=== PATIENT | male | born 1995 | race Caucasian/White ===

== ENCOUNTER 2018-11-10 11:28 | Emergency (ER) | payer MEDICAID ==
[~2018-11-10] VITALS: Ht 160 cm; Wt 74.7 kg
[2018-11-10 11:33] VITALS: RESP 18; Ht 160 cm; Wt 74.7 kg
[2018-11-10] MEDS ORDERED: TETRACAINE 0.5% 4 ML OPH LEFT EYE SCH (13:30)
[2018-11-10] MEDS ORDERED: SULF15DR19 LEFT EYE (13:59)
[2018-11-10 14:17] VITALS: BP 113/69; PULSE 62
--- NOTE | 2018-11-10 16:35 | ERD ---
ER Documentation Chief Complaint Chief Complaint left eye redness, pain & swelling x2 days HPI 23-year-old male patient with no significant past medical history presents to ED complaining of left eye redness, pain and swelling that started about 2 days ago. That he has some slight left eye blurred vision. Denies having any foreign bodies in his left eye. Denies any fever, chills, headache, nausea, vomiting, dizziness. ROS All systems reviewed and are negative except as per history of present illness. Medications Home Meds Active Scripts Sulfacetamide Sodium* (Bleph-10*) 10%-15 Ml Opht Drops, 1 DROP LEFT EYE Q2H for 7 Days, #1 EA Prov:STEPHANIE KONG Lance BAILEY 11/10/18 PMhx/Soc Hx Alcohol Use: No Hx Substance Use: No Hx Tobacco Use: No Smoking Status: Never smoker FmHx Family History: No diabetes, No coronary disease Physical Exam Vitals Vital Signs Date Temp Pulse Resp B/P (MAP) Pulse Ox O2 O2 Flow FiO2 Time Delivery Rate 11/10/18 62 113/69 99 Room Air 14:17 (84) 11/10/18 97.6 64 18 119/70 96 11:33 (86) Physical Exam Const: Ldl-ett-sicsifgor, well-nourished. In no acute distress. Head: Atraumatic, normocephalic Eyes: Left injected conjunctiva. No purulent discharge. PERRLA. EOMI ENT: Normal external ear. Ear canal without erythema. Tympanic membrane pearly garcia without effusion or bulging. Nasal canal clear with normal turbinates. Moist oropharynx without tonsillar exudates. Non-erythematous pharynx. Uvula midline. No drooling. No trismus. Neck: No cervical midline tenderness. Full range of motion. No meningismus. No cervical lymphadenopathy. No JVD. Resp: Clear to auscultation bilaterally. No wheezing, rhonchi, rales, or crackles. No accessory muscle use. No retractions. Cardio: Regular rate and rhythm. No murmurs, rubs or gallops. Abd: Soft, non tender, non distended. Normal bowel sounds. No palpable masses. No rebound tenderness. No guarding. Negative McBurney's Point. Negative Chowdary's Sign. Skin: Normal skin turgor. No petechiae or rashes Back: No midline tenderness. No CVA tenderness. Ext: No cyanosis, or edema. Distal pulses intact bilaterally. Neur: Awake and alert. Normal gait. Normal coordination. Cranial Nerves II- VII intact. Normal finger to nose. Muscle strength 5/5. Sensation intact. Psych: Normal Mood and Affect Results 24 hrs Current Medications Medications Dose Sig/Fermin Start Time Status Last (Trade) Ordered Route PRN Stop Time Admin Dose Reason Admin Tetracaine 1 drop ONCE LEFT 11/10/18 DC HCl EYE 13:30 11/10/18 (Tetracaine 14:19 0.5% Steri-Unit [place]) Procedures/MDM 23-year-old male patient with no significant past medical history presents to ED complaining of left eye redness and pain and swelling that started about 2 days ago. Patient is afebrile and nontoxic-appearing. Eye Exam w/ Wood's lamp: Visual Acuity: [20/70 left 20/20 right 20/15 bilaterally] Visual Vega: Intact in all four quadrants bilaterally Lac ducts/glands: No swelling Lids w/ evertion: Normal, no foreign body Conj/[place]: Clear, negative Fluorescein/Renata's Anterior Chamber: Clear Tonopen readings: [Right 15 mmHg, left 16 mmHg] Retina exam: No obvious abnormality Patient's ocular symptoms have stabilized while they have been evaluated in the department and are appropriate for outpatient work up. Patient will be covered for possible conjunctivitis. Low suspicion for ruptured globe, retinal detachment, periorbital cellulitis, acute angle closure glaucoma, deep space infection, iritis, traumatic hyphema, conjunctivitis, subconjunctival hemorrhag e, corneal abrasion, corneal ulcer, pterygium, hypopyon, blepharitis, hordeolum, chalazion, or other emergent conditions. Diagnosis: Eye pain, Redness of Eye Discharge medications: Bleph 10 Follow up with primary care physician in 1-2 days. Instructed patient to return to the ED sooner for any worsening symptoms. Patient's questions were answered. Patient is hemodynamically stable. Patient understood and agreed with discharge plan. Patient discharged stable. Disclaimer: Inadvertent spelling and grammatical errors are likely due to EHR/dictation software use and do not reflect on the overall quality of patient care. Also, please note that the electronic time recorded on this note does not necessarily reflect the actual time of the patient encounter. Departure Diagnosis: Primary Impression: Eye pain Laterality: left Qualified Codes: H57.12 - Ocular pain, left eye Additional Impression: Redness of eye, left Condition: Stable Patient Instructions: Understanding Red Eye: Causes [facility]errals: [facility] Usted se irby hecho un examen mdico de control que le indica que no est en yulissa condicin que requiera tratamiento urgente en el Departamento de Emergencia. Un estudio ms profundo y el tratamiento de mora condicin pueden esperar sin ningn riesgo hasta que usted sea atendida/o en el consultorio de mora mdico o yulissa clnica. Es responsabilidad suya arreglar yulissa ghazal para el seguimiento del ambrose. MANEJO DE CONDICIONES NO URGENTES EN EL FUTURO 1) Si usted tiene un mdico de atencin primaria: Usted debera llamar a mora mdico de atencin primaria antes de venir al d epartamento de emergencia. Despus de las horas de consultorio, mora doctor o mora asociado/a est disponible por telfono. El mdico o enfermero de obdulia en el servicio telefnico puede asesorarle por betty medio para atender el problema, o ambrose contrario se puede programar yulissa ghazal. 2) Si usted no tiene un mdico de atencin primaria: Llame al mdico o clnica de referencia que aparece abajo delvin las horas de consultorio para hacer yulissa ghazal para que le vean. CLINICAS: [facility] [phone] [id number] [facility] [phone] [address] [facility] [phone] [address] [place] [id number] [phone] [facility] [phone] [address] [facility]. [phone] [address] [facility] [address] [facility] () Usted se irby hecho un examen mdico de control que le indica que no est en yulissa condicin que requiera tratamiento urgente en el Departamento de Emergencia. Un estudio ms profundo y el tratamiento de mora condicin pueden esperar sin ningn riesgo hasta que usted sea atendida/o en el consultorio de mora mdico o yulissa clnica. Es responsabilidad suya arreglar yulissa ghazal para el seguimiento del ambrose. MANEJO DE CONDICIONES NO URGENTES EN EL FUTURO 1) Si usted tiene un mdico de atencin primaria: Usted debera llamar a mroa mdico de atencin primaria antes de venir al d epartamento de emergencia. Despus de las horas de consultorio, mora doctor o mora asociado/a est disponible por telfono. El mdico o enfermero de obdulia en el servicio telefnico puede asesorarle por betty medio para atender el problema, o ambrose contrario se puede programar yulissa ghazal. 2) Si usted no tiene un mdico de atencin primaria: Llame al mdico o condado institucions de referencia que aparece abajo delvin las horas de consultorio para hacer yulissa ghazal para que le vean. SI USTED NO PUEDE PAGAR PARA JUDY UN MEDICO puede ir a: [facility] [id number] [place] [address] [facility] [address] [place] [address] [facility] [address] [place] [address] [facility] [facility] [address] [place] [address] [facility] Hours: Mon - Fri 9:00 AM - 5:00 PM Additional Instructions: Es importante que usted siga con el oftalmlogo en el plazo de 24 horas Dgale a la secretaria que nosotros le instruimos hacer esta ghazal.Avise o llame si mora condicin se empeora antes de la ghazal. Regresa aqui si peor o no mejor. STEPHANIE KONG PA-C Nov 10, 2018 16:35
== END 2018-11-10 14:19 | disposition home or self-care (01) ==
LOC: FTE 11:28
DX: H57.12 Ocular pain, left eye (principal); H57.89 Other specified disorders of eye and adnexa
CPT/HCPCS: 76536; Z7610